=== PATIENT | female | born 1950 | race Asian ===

== ENCOUNTER 2021-04-28 11:18 | Emergency (ER) | payer MEDICARE, OTHER ==
[~2021-04-28] VITALS: Ht 152.4 cm; Wt 56.8 kg
[2021-04-28] MEDS ORDERED: LISI-893 PO (11:49)
[2021-04-28] MEDS ORDERED: GLIP5 PO (11:49)
[2021-04-28] MEDS ORDERED: METF-960 PO (11:49)
[2021-04-28] MEDS ORDERED: ASPI-1450 PO (11:49)
[2021-04-28] MEDS ORDERED: CHOL-35 PO (11:49)
[2021-04-28] MEDS ORDERED: ATOR10TA84 PO (11:49)
[2021-04-28] MEDS ORDERED: PIOG15TA6 PO (11:49)
[2021-04-28] MEDS ORDERED: EMPA10TA PO (11:49)
[2021-04-28 11:54] LABS: CALCIUM, TOTAL 10.6 mg/dL (8.8-10.5); CREATININE 1.1 mg/dL (0.60-1.30); POTASSIUM 4.7 mmol/L (3.5-5.1)
[2021-04-28 12:00] LABS: BASOPHILS % (AUTO) 0.6 % (0.0-2.0); BILIRUBIN,TOTAL 0.2 mg/dL (0.1-1.0); EOSINOPHILS % (AUTO) 3.2 % (1.0-6.0); HEMATOCRIT 38.9 % (36-46); HEMOGLOBIN 12.7 g/dL (12.0-16.0); LYMPHOCYTES # (AUTO) 1.3 K/uL (1.0-4.8); LYMPHOCYTES % (AUTO) 21.5 % (22.0-44.0); MEAN CORPUSCULAR HEMOGLOBIN 32.6 pg (26.0-34.0); MEAN CORPUSCULAR HGB CONC 32.7 G/dL (31.0-37.0); MEAN CORPUSCULAR VOLUME 100 fL (80-100); MONOCYTES # (AUTO) 0.4 K/uL (0.1-1.0); MONOCYTES % (AUTO) 5.7 % (2.0-9.0); NEUTROPHILS # (AUTO) 4.2 K/uL (1.8-7.7); PLATELET COUNT (AUTO) 306 K/uL (150-450); RED CELL DISTRIBUTION WIDTH 13.6 % (11.5-14.5); TOTAL PROTEIN, SERUM 8.4 g/dL (6.4-8.2)
[2021-04-28] MEDS ORDERED: SODIUM CHLORIDE 0.9% 500 ML IV ONE (12:00)
[2021-04-28] MEDS ORDERED: ACETAMINOPHEN 500 MG TABLET PO ONE (12:00)
[2021-04-28 13:34] VITALS: BP 113/67
[2021-04-28 14:12] LABS: APPEARANCE,URINE CLOUDY (CLEAR); BILIRUBIN,URINE NEGATIVE (NEGATIVE); GLUCOSE, URINE (UA) NEGATIVE (NEGATIVE); KETONES,URINE NEGATIVE (NEGATIVE); LEUKOCYTE ESTERASE ,URINE MODERATE (NEGATIVE); NITRATE,URINE NEGATIVE (NEGATIVE); OCCULT BLOOD,URINE NEGATIVE (NEGATIVE); PROTEIN,URINE NEGATIVE (NEGATIVE); UROBILINOGEN,URINE 0.2 mg/dL (<=1.0)
[2021-04-28 14:29] LABS: BACTERIA,URINE Few /HPF (None Seen); RBC,URINE None Seen /HPF (0-2); SQUAMOUS EPITHELIAL CELL,UR Few /LPF (None Seen)
== END 2021-04-28 14:20 | disposition home or self-care (01) ==
LOC: EMS 11:20
DX: R55 Syncope and collapse (principal); R51.9 Headache, unspecified; I10 Essential (primary) hypertension; E11.9 Type 2 diabetes mellitus without complications; E78.00 Pure hypercholesterolemia, unspecified; Z79.899 Other long term (current) drug therapy; Z79.84 Long term (current) use of oral hypoglycemic drugs; Z79.82 Long term (current) use of aspirin
CPT/HCPCS: 36415; 70450; 71045; 80053; 81001; 82550; 83880; 84484; 85025; 87086; 93005; 99285; J7040

== ENCOUNTER 2021-04-30 09:24 | Emergency (ER) | payer MEDICARE ==
[~2021-04-30] VITALS: Ht 147.3 cm; Wt 56.8 kg
[~2021-04-30 09:24] MED LIST: ASPI-1450 PO; ATOR10TA84 PO; CHOL-35 PO; EMPA10TA PO; GLIP5 PO; LISI-893 PO; METF-960 PO; PIOG15TA6 PO
[2021-04-30 09:28] VITALS: BP 113/64
== END 2021-04-30 14:08 | disposition home or self-care (01) ==
LOC: EMS 09:36
DX: M54.5 Low back pain (principal); I10 Essential (primary) hypertension; E11.9 Type 2 diabetes mellitus without complications; E78.00 Pure hypercholesterolemia, unspecified; Z79.899 Other long term (current) drug therapy; Z79.84 Long term (current) use of oral hypoglycemic drugs; Z79.82 Long term (current) use of aspirin
CPT/HCPCS: 72100; 99283

== ENCOUNTER 2023-01-06 14:20 | Emergency (ER) | payer MEDICARE ==
[~2023-01-06] VITALS: Ht 147.3 cm; Wt 56.8 kg
[~2023-01-06 14:20] MED LIST changes: +ATOR10TA PO; -ATOR10TA84 PO; -CHOL-35 PO; +CHOL25TA4 PO; -EMPA10TA PO; +EMPA10TA3 PO; -GLIP5 PO; +GLIP5TAB12 PO; +METF-1211 PO; -METF-960 PO
[2023-01-06 14:21] VITALS: BP 123/66
[2023-01-06] MEDS ORDERED: LISI-893 PO (14:26)
[2023-01-06] MEDS ORDERED: DULA1.5P SQ (14:26)
[2023-01-06] MEDS ORDERED: ACAR50TA5 PO (14:26)
[2023-01-06] MEDS ORDERED: ACETAMINOPHEN 500 MG TABLET PO ONE (14:45)
[2023-01-06] MEDS ORDERED: ONDANSETRON HCL 4 MG TABLET PO ONE (14:45)
[2023-01-06] MEDS ORDERED: MECLIZINE HCL 25 MG TABLET PO ONE (14:45)
[2023-01-06 14:57] LABS: BASOPHILS % (AUTO) 0.4 % (0.0-2.0); EOSINOPHILS % (AUTO) 0.4 % (1.0-6.0); HEMATOCRIT 35.3 % (36-46); HEMOGLOBIN 11.6 g/dL (12.0-16.0); LYMPHOCYTES # (AUTO) 0.9 K/uL (1.0-4.8); LYMPHOCYTES % (AUTO) 11.1 % (22.0-44.0); MEAN CORPUSCULAR HEMOGLOBIN 32.7 pg (26.0-34.0); MEAN CORPUSCULAR HGB CONC 32.9 G/dL (31.0-37.0); MEAN CORPUSCULAR VOLUME 100 fL (80-100); MONOCYTES # (AUTO) 0.3 K/uL (0.1-1.0); MONOCYTES % (AUTO) 4.1 % (2.0-9.0); NEUTROPHILS # (AUTO) 6.9 K/uL (1.8-7.7); PLATELET COUNT (AUTO) 262 K/uL (150-450); RED BLOOD CELL COUNT(AUTO) 3.55 MIL/uL (4.00-5.20); RED CELL DISTRIBUTION WIDTH 12.9 % (11.5-14.5)
[2023-01-06 15:07] LABS: CALCIUM, TOTAL 9.9 mg/dL (8.8-10.5); CREATININE 1.82 mg/dL (0.60-1.30); POTASSIUM 4.4 mmol/L (3.5-5.1)
[2023-01-06 15:12] LABS: ALBUMIN 4.1 g/dL (3.4-5.0); BILIRUBIN,TOTAL 0.2 mg/dL (0.1-1.0); TOTAL PROTEIN, SERUM 8.2 g/dL (6.4-8.2)
[2023-01-06] MEDS ORDERED: MECL-134 PO (16:14)
[2023-01-06] MEDS ORDERED: ONDA-104 PO (16:14)
[2023-01-06] MEDS ORDERED: ACET-66 PO (16:14)
== END 2023-01-06 16:23 | disposition home or self-care (01) ==
LOC: EMS 14:24
DX: E11.65 Type 2 diabetes mellitus with hyperglycemia (principal); N28.9 Disorder of kidney and ureter, unspecified; E78.00 Pure hypercholesterolemia, unspecified; I10 Essential (primary) hypertension; Z90.89 Acquired absence of other organs; Z79.82 Long term (current) use of aspirin; Z79.84 Long term (current) use of oral hypoglycemic drugs; Z79.899 Other long term (current) drug therapy
CPT/HCPCS: 99284; 80053; 84484; 85025; 36415; 93005; Q0162; 82962